=== PATIENT | male | born 1950 | race Caucasian/White ===

== ENCOUNTER → 2020-03-02 | Outpatient (CLI) | payer SELFPAY ==
[2020-03-04 16:10] LABS: CORONAVIRUS (COVID19) CSH-NRL Negative (Negative)
== END | disposition home or self-care (01) ==
LOC: LAB SHORT 15:29
PROVIDERS: Chiropractor
DX: R05 Cough (principal); Z20.828 Contact with and (suspected) exposure to other viral communicable diseases
CPT/HCPCS: U0003

== ENCOUNTER 2020-06-16 10:45 | Day surgery (SDC) | payer MEDICARE ==
[~2020-06-16] VITALS: Ht 167.6 cm; Wt 79.3 kg
[2020-06-16 12:09] LABS: BASOPHILS ABSOLUTE AUTO 0.04 K/mm3 (0.00-0.23); BASOPHILS PERCENT AUTO 1 % (0-2); EOSINOPHILS ABSOLUTE AUTO 0.17 K/mm3 (0.00-0.68); EOSINOPHILS PERCENT AUTO 2 % (0-6); Hematocrit 47.4 % (37.0-53.0); Hemoglobin 15.1 g/dL (13.5-17.5); IMMATURE GRAN ABSOLUTE AUTO 0.03 K/mm3 (0.00-0.10); IMMATURE GRAN PERCENT AUTO 0 % (0-1); LYMPHOCYTES ABSOLUTE AUTO 1.91 K/mm3 (0.84-5.20); LYMPHOCYTES PERCENT AUTO 26 % (21-46); MONOCYTES ABSOLUTE AUTO 0.56 K/mm3 (0.16-1.47); MONOCYTES PERCENT AUTO 8 % (4-13); Mean Corpuscular HGB 28.3 pg (26.0-34.0); Mean Corpuscular HGB Conc 31.9 g/dL (31.5-36.5); Mean Corpuscular Volume 89 fL (80-100); Mean Platelet Volume 9.8 fL (9.1-12.4); NEUTROPHILS ABSOLUTE AUTO 4.69 K/mm3 (1.96-9.15); NEUTROPHILS PERCENT AUTO 63 % (41-73); Platelet Count 117 K/mm3 (150-400); RDW Coefficient Variation 13.4 % (11.7-14.2); RDW Standard Deviation 43.8 fL (35.1-46.3); Red Blood Cell Count 5.33 M/mm3 (4.30-5.90)
[2020-06-16 12:27] LABS: Alanine Aminotransfer (ALT/SGP 38 U/L (12-78); Albumin, Blood 3.7 g/dL (3.4-5.0); Albumin/Globulin Ratio 0.9 (0.8-1.8); Alk Phos 120 U/L (50-136); Anion Gap 4 mmol/L (6-16); Aspartate Aminotrans (AST/SGOT 35 U/L (12-37); Bilirubin, Total 0.7 mg/dL (0.1-1.0); Blood Urea Nitrogen 14 mg/dL (8-24); Bun/Creatinine Ratio 17.1 (12.0-20.0); CO2, Blood 29 mmol/L (21-32); Calcium, Blood 8.8 mg/dL (8.5-10.1); Chloride, Blood 106 mmol/L (98-108); Creatinine, Blood 0.82 mg/dL (0.60-1.20); Globulin, Blood 4.2 g/dL (2.2-4.0); Glomerular Filtration Rate >60 (60-); Glucose, Blood 86 mg/dL (70-99); Potassium, Blood 4.1 mmol/L (3.5-5.5); Sodium, Blood 139 mmol/L (136-145); Total Protein, Blood 7.9 g/dL (6.4-8.2)
[2020-06-16 14:06] LABS: Prothrombin Time Results 10.7 Sec (9.7-11.5)
[2020-06-16] MEDS ORDERED: Norvasc5 MG PO (14:38)
[2020-06-16 15:34] LABS: Influenza A, PCR NEGATIVE (NEGATIVE); Influenza B, PCR NEGATIVE (NEGATIVE); Resp Syncytial Virus, PCR NEGATIVE (NEGATIVE); SARS-Cov-2 (COVID-19) PCR, MMC NEGATIVE (NEGATIVE)
[2020-06-16] MEDS ORDERED: XARELTO20 MG PO (20:38)
--- NOTE | 2020-06-16 21:15 | NUR ---
PT PROVIDED WITH DISCHARGE TEACHING INCLUDING UP TO DATE MED REC AND NEW PRESCRIPTION INFORMATION. RXS FAXED TO [facility] PER PT REQUEST, PT VERBALIZES UNDERSTANDING TO MANAGING EDITOR NEW PRESCRIPTIONS TOMORROW AND TAKE DIRECTED. PT STRONGLY ENCOURAGED TO ESTABLISH WITH A PRIMARY CARE PROVIDER SOON POSSIBLE. PT HAS APPT TO FOLLOW UP WITH DR ESQUEDA TOMORROW. PT ABLE TO AMBULATE IN THE ROOM, VSS, NO S/SX OF BLEEDING TO LEFT POPLITEAL ACCESS SITE. IV'S X2 20G TO RIGHT FA AND AC REMOVED, CATHETERS INTACT. PT ESCORTED VIA WHEELCHAIR TO HIS SISTER'S CARE. NO FURTHER DISCHARGE NEEDS AT THIS TIME.
--- NOTE | 2020-06-16 21:20 | NUR ---
DISCHARGE PT BROUGHT TO PCU-13 IN PCU BED FROM [facility] @ APPROX 2044. PT A&O X4. BP ELEVATED, OTHERWISE VSS. SPO2 > 92% ON RA. PT W/ L POPLITEAL ACCESS SITE. SITE WNL, NO BLEEDING, NO HEMATOMA. MD ESQUEDA TO UNIT TO SEE PT & GAVE VERBAL OKAY FOR PT "DOES NOT HAVE TO STAY 2 HRS." PT LAYED FLAT FOR 1 HR, THEN TOLERATED SITTING UP & THEN STANDING W/ NO CHANGES TO ACCESS SITE. PT GIVEN PO XARELTO PER ORDER. PT THEN DC @ APPROX 2114 BY WHEELCHAIR, ESCORTED BY RN.
== END 2020-06-16 21:17 | disposition home or self-care (01) ==
LOC: ER 10:45 → PCU 17:25 → MHTC 17:30 → PCU 17:35 → MHTC 21:17
PROVIDERS: Emergency Medicine; Pharmacist
PROC: 06CN3ZZ Extirpation of Matter from Left Femoral Vein, Percutaneous Approach (ICD-10-PCS; principal; 2020-06-16)
PROC: 06CD3ZZ Extirpation of Matter from Left Common Iliac Vein, Percutaneous Approach (ICD-10-PCS; 2020-06-16)
PROC: 06CY3ZZ Extirpation of Matter from Lower Vein, Percutaneous Approach (ICD-10-PCS; 2020-06-16)
DX: I82.412 Acute embolism and thrombosis of left femoral vein (principal); I82.432 Acute embolism and thrombosis of left popliteal vein; I10 Essential (primary) hypertension; Z20.822 Contact with and (suspected) exposure to COVID-19
CPT/HCPCS: 0241U; 36010; 37212; 37248; 75820; 75825; 76937; 80053; 85025; 85347; 85610; 85730; 93971; 96374; 99152; 99153; 99285-25; A9270; C1725; C1757; C1769; C1887; C1894; J1644; J2250; J3010; J7030; J7040; Q9967

== ENCOUNTER 2021-01-19 10:11 | Day surgery (SDC) | payer MEDICARE ==
[~2021-01-19] VITALS: Ht 170.2 cm; Wt 80.5 kg
[~2021-01-19 10:11] MED LIST: Norvasc5 MG PO; XARELTO20 MG PO
--- NOTE | 2021-01-19 10:30 | NUR ---
PT ARRIVED TO DEPARTMENT FOR OUTPATIENT PROCEDURE. MENDOZA BISHOP SPOKE WITH LAB WHO STATED THAT PT COVID TEST FROM YESTERDAY WAS "SENT OUT". DUE TO PT NOT HAVING COVID-19 RESULTS ORDER OBTAINED PRIOR TO PROCEDURE FOR RAPID COVID TEST TO BE PERFORMED PER DR. ESQUEDA. PT TOLERATED PROCEDURE WELL.
[2021-01-19] MEDS ORDERED: AMLO10 PO (10:53)
[2021-01-19] MEDS ORDERED: HYDCHL12.5 PO (10:53)
[2021-01-19] MEDS ORDERED: XARELTO20 MG PO (10:54)
[2021-01-19 11:45] LABS: SARS-Cov-2 (COVID-19) PCR, MMC NEGATIVE (NEGATIVE)
--- NOTE | 2021-01-19 13:40 | NUR ---
PT ARRIVED BACK INTO RECOVERY ROOM. INARI PROCEDURE SUCCESSFUL TO LEFT LEG. POPLITEAL VEIN WITH SUTURE AND DRESSING IN PLACE. NO BLEEDING OR OOZING NOTED. PT LAYING SUPINE, DENIES WANT FOR FOOD OR DRINK AT THIS TIME. VSS. CALL LIGHT IN REACH.
--- NOTE | 2021-01-19 15:30 | NUR ---
PURSE STRING SUTURE REMOVED FROM LEFT POPLITEAL VEIN, BLEEDING OCCURED, MANUAL PRESSURE HELD BY MENDOZA FLOREZ FOR 20 MINUTES. HEMOSTASIS OBTAINED, DIMITRIS AND PRESSURE DRESSING APPLIED. BLE DP/PT PULSES +2 PT LEFT LEG RED SWOLLEN WITH PITTING EDEMA. PT DENIES CP OR SOB. WILL CONTINUE TO MONITOR.
--- NOTE | 2021-01-19 16:12 | NUR ---
PT VERBALIZED UNDERSTANDING OF D/C INSTRUCTIONS. PAPERWORK PROVIDED IN FOLDER. PRESSURE DRESSING REMAINS ON LEFT LEG AROUND POPLITEAL VEIN, NO ACTIVE BLEEDING OR OOZING NOTED UNDER OR AROUND DRESSING. PT INSTRUCTED TO REMOVE PRESSURE DRESSING TONIGHT, VERBALIZED UNDERSTANDING. PT REPORTS CALLING SISTER FOR RIDE HOME. DENIES NEED FOR W/C OUT TO PRIVATE VEHICLE. AMBULATES WITH SLOW STEADY GAIT. IV REMOVED FROM RFA WITH CATH INTACT, PRESSURE APPLIED. NO ACUTE DISTRESS NOTED AT TIME OF DISCHARGE. ENCOURAGED TO FOLLOW UP WITH PROVIDER SCHEDULED AND TO CONTINUE TAKING BLOOD THINNING MEDICATIONS.
== END 2021-01-19 16:10 | disposition home or self-care (01) ==
LOC: MHTC 10:11
PROVIDERS: Radiology Diagnostic Radiology
DX: I82.412 Acute embolism and thrombosis of left femoral vein (principal); I82.432 Acute embolism and thrombosis of left popliteal vein; Z20.822 Contact with and (suspected) exposure to COVID-19; I10 Essential (primary) hypertension
CPT/HCPCS: 76937; 85347; 99152; 99153; C1725; C1757; C1769; C1887; C1894; J1644; J2250; J3010; J7030; J7040; Q9967; U0004

== ENCOUNTER → 2023-07-31 | Outpatient (CLI) | payer OTHER ==
[~2023-07-31] MED LIST changes: +AMLO10 PO; +HYDCHL12.5 PO
[2023-08-03 00:47] LABS: CREATININE,URINE - PER 24H 1628 mg/d (800-2100); CREATININE,URINE - PER VOLUME 148 mg/dL; HOURS COLLECTED 24 hr; METANEPHRINE,UR - RATIO TO CRT 70 ug/g CRT (0-300); METANEPHRINE,URINE - PER 24H 114 ug/d (55-320); METANEPHRINE,URN - PER VOLUME 104 ug/L; NORMETANEPHRINE,U - PER VOLUME 269 ug/L; NORMETANEPHRINE,URN - PER 24H 296 ug/d (114-865); NORMETANEPHRINE,URN/CRT RATIO 182 ug/g CRT (0-400); TOTAL VOLUME 1100 mL
[2023-08-03 14:50] LABS: CREATININE,URINE - PER 24H 1628 mg/d (800-2100); CREATININE,URINE - PER VOLUME 148 mg/dL; DOPAMINE,URINE - PER 24H 143 ug/d (71-485); DOPAMINE,URINE - PER VOLUME 130 ug/L; DOPAMINE,URINE - RATIO TO CRT 88 ug/g CRT (0-250); EPINEPHRINE,URINE - PER 24H 3 ug/d (1-14); EPINEPHRINE,URINE - PER VOLUME 3 ug/L; EPINEPHRINE,URN - RATIO TO CRT 2 ug/g CRT (0-20); HOURS COLLECTED 24 hr; NOREPINEPHRINE,UR - PER VOLUME 33 ug/L; NOREPINEPHRINE,URINE - PER 24H 36 ug/d (14-120); NOREPINEPHRINE,URN/CRT RATIO 22 ug/g CRT (0-45); TOTAL VOLUME 1100 mL
== END | disposition home or self-care (01) ==
LOC: LAB 04:30 → LAB SHORT 04:30
PROVIDERS: Family Medicine
DX: E27.8 Other specified disorders of adrenal gland (principal)
CPT/HCPCS: 36415; 81050; 82384; 82533; 83835